=== PATIENT | male | born 2000 | race Hispanic/Latino ===

== ENCOUNTER 2023-05-15 21:52 | Inpatient (IN) | payer OTHER, SELFPAY ==
[~2023-05-15 21:52] MED LIST: Iopamidol-370 76% 500 ML MDV (1 ML CHARGE) ONE
[2023-05-15] MEDS ORDERED: CEFAZOLIN 2 GM VIAL ONE (21:59)
[2023-05-15] MEDS ORDERED: Sodium Chloride 0.9% 100 ML ONE (22:00)
[2023-05-15] MEDS ORDERED: Boostrix 0.5 ML (Tdap) VIAL (>/=7 yrs of age) ONE (22:00)
[2023-05-15 22:22] LABS: #Basophils 0.1 thou/uL (0.0-0.2); #Eosinphils 0.1 thou/uL (0.0-0.7); #Monocytes 0.7 thou/uL (0.11-0.59); #Neutrophils 9.8 thou/uL (1.40-6.50); %Basophils 0.6 % (0.0-1.0); %Eosinophils 0.9 % (0.0-10.0); %Lymphocytes 15.4 % (21.0-51.0); %Monocytes 5.1 % (0.0-10.0); %Neutrophils 77.5 % (42.0-75.0); Hematocrit 42.5 % (42.0-52.0); Hemoglobin 14.3 g/dL (14.0-18.0); Mean Corpuscular HGB CONC 33.6 g/dL (32.0-36.0); Mean Corpuscular Hemoglobin 29.9 pg (27.0-31.0); Mean Corpuscular Volume 88.7 fl (78.0-98.0); Mean Platelet Volume 10.1 fL (7.4-10.4); Platelet Count 342 10x3/uL (130-400); RBC Distribution Width 13.6 % (11.5-14.5); Red Blood Cell (RBC) Count 4.79 mill/uL (4.70-6.10); White Blood Cell (WBC) Count 12.7 10x3/uL (4.8-10.8)
[2023-05-15] MEDS ORDERED: Ketamine In 0.9 % NaCl 50 MG/5 ML SYRINGE ONE (22:24)
[2023-05-15] MEDS ORDERED: Ketorolac Tromethamine 30 MG (1 mL) VIAL ONE (22:25)
[2023-05-15] MEDS ORDERED: Morphine 4 MG/ML VIAL ONE (22:25)
[2023-05-15] MEDS ORDERED: Ipratropium/Albuterol 3 ML NEB NEB PRN (22:34)
[2023-05-15] MEDS ORDERED: Ondansetron PF 4 MG/2 ML Vial IVP PRN (22:34)
[2023-05-15] MEDS ORDERED: Morphine 2 MG/ML VIAL SLOW IVP PRN (22:34)
[2023-05-15 22:37] LABS: INR-International Normal Ratio 1.1; PTT 23.9 sec (22.9-36.1); Prothrombin Time 14.3 sec (12.0-14.7)
[2023-05-15] MEDS ORDERED: Cyclobenzaprine 10 MG TAB PO PRN (22:39)
[2023-05-15 22:43] LABS: Acetaminophen Less than 10 mcg/mL (10.0-30.0); Alcohol 160.3 mg/dL (Less than 10); Lipase 63 U/L (8-78); Salicylate Less than 8.0 mg/dL (15.0-30.0)
[2023-05-15 22:44] LABS: ALT (SGPT) 186 U/L (8-55); AST (SGOT) 262 U/L (5-34); Albumin 4.4 g/dL (3.5-5.0); Alkaline Phosphatase 67 U/L (40-110); Anion Gap 17 mmol/L (10-20); BUN (Urea Nitrogen) 13 mg/dL (8.9-20.6); Bilirubin, Total 0.2 mg/dL (0.2-1.2); Calc. Creatinine Clearance 0 mL/min (70-130); Calcium 8.3 mg/dL (7.8-10.44); Carbon Dioxide 18 mmol/L (22-29); Chloride 108 mmol/L (98-107); Estimated GFR 125; Globulin 2.3 g/dL (2.4-3.5); Glucose 115 mg/dL (70-105); Potassium 3.6 mmol/L (3.5-5.1); Protein, Total 6.7 g/dL (6.0-8.3); Sodium 139 mmol/L (136-145)
[2023-05-15] MEDS ORDERED: Sodium Chloride 0.9% 1,000 ML IV SCH (22:45)
[2023-05-15] MEDS ORDERED: Acetaminophen 500 MG TAB PO SCH (23:59)
[2023-05-16] MEDS: traMADol HCl 50 MG TAB PO SCH ×4 (00:10→18:13)
[2023-05-16] MEDS: Acetaminophen 500 MG TAB PO SCH ×4 (00:11→18:13)
[2023-05-16 01:14] VITALS: BMI 24.7
[2023-05-16 01:27] LABS: Lactic Acid 1.8 mmol/L (0.5-2.2)
[2023-05-16 05:28] LABS: #Eosinphils 0.1 thou/uL (0.0-0.7); #Neutrophils 6.9 thou/uL (1.40-6.50); %Basophils 0.4 % (0.0-1.0); %Eosinophils 0.5 % (0.0-10.0); %Lymphocytes 15.2 % (21.0-51.0); %Neutrophils 72.6 % (42.0-75.0); Hematocrit 40.5 % (42.0-52.0); Hemoglobin 13.4 g/dL (14.0-18.0); Mean Corpuscular HGB CONC 33.1 g/dL (32.0-36.0); Mean Corpuscular Hemoglobin 29.8 pg (27.0-31.0); Mean Corpuscular Volume 90.2 fl (78.0-98.0); Mean Platelet Volume 10.6 fL (7.4-10.4); Platelet Count 267 10x3/uL (130-400); RBC Distribution Width 14.2 % (11.5-14.5); Red Blood Cell (RBC) Count 4.49 mill/uL (4.70-6.10); White Blood Cell (WBC) Count 9.5 10x3/uL (4.8-10.8)
[2023-05-16 05:53] LABS: Anion Gap 12 mmol/L (10-20); BUN (Urea Nitrogen) 11 mg/dL (8.9-20.6); Calc. Creatinine Clearance 149 mL/min (70-130); Calcium 8.1 mg/dL (7.8-10.44); Carbon Dioxide 22 mmol/L (22-29); Chloride 112 mmol/L (98-107); Estimated GFR 129; Glucose 95 mg/dL (70-105); Sodium 142 mmol/L (136-145)
[2023-05-16] MEDS ORDERED: Gabapentin 100 MG CAP PO SCH (09:00)
[2023-05-16] MEDS: Senokot S 8.6-50 MG TAB PO SCH ×2 (09:05→20:35)
[2023-05-16] MEDS: Famotidine/PF 20 mg/2ml Vial SLOW IVP SCH ×2 (09:07→20:29)
[2023-05-16 13:12] LABS: Amphetamine Not Detected (NotDetected); Barbiturates Screen Not Detected (NotDetected); Benzodiazepine Screen Not Detected (NotDetected); Cocaine Metabolite Screen Detected (NotDetected); Methadone Not Detected (NotDetected); Methamphetamine Not Detected (NotDetected); Opiate Screen Detected (NotDetected); Oxycodone Screen Not Detected (NotDetected); Phencyclidine (PCP) Not Detected (NotDetected); THC/Cannabinoid Screen Not Detected (NotDetected); Tricyclic Screen Not Detected (NotDetected)
[2023-05-16] MEDS ORDERED: Magnesium Citrate 300 ML BOT PO SCH (15:00)
[2023-05-16] MEDS: Gabapentin 300 MG CAP PO SCH ×2 (15:31→20:31)
[2023-05-16] MEDS: Enoxaparin 40 MG (0.4 mL) SYRINGE SC SCH (20:30)
[2023-05-16] MEDS: Cyclobenzaprine 10 MG TAB PO PRN (20:31)
[2023-05-16] MEDS: traMADol HCl 50 MG TAB PO PRN (20:33)
[2023-05-17] MEDS: traMADol HCl 50 MG TAB PO SCH ×5 (00:42→23:44)
[2023-05-17] MEDS: Acetaminophen 500 MG TAB PO SCH ×5 (00:43→23:45)
[2023-05-17 05:18] LABS: #Basophils 0.1 thou/uL (0.0-0.2); #Eosinphils 0.2 thou/uL (0.0-0.7); #Monocytes 0.8 thou/uL (0.11-0.59); %Basophils 0.7 % (0.0-1.0); %Eosinophils 2.8 % (0.0-10.0); %Lymphocytes 15.5 % (21.0-51.0); %Monocytes 9.9 % (0.0-10.0); %Neutrophils 70.9 % (42.0-75.0); Hematocrit 42.7 % (42.0-52.0); Hemoglobin 13.9 g/dL (14.0-18.0); Mean Corpuscular HGB CONC 32.6 g/dL (32.0-36.0); Mean Corpuscular Hemoglobin 29.8 pg (27.0-31.0); Mean Corpuscular Volume 91.4 fl (78.0-98.0); Mean Platelet Volume 10.5 fL (7.4-10.4); Platelet Count 256 10x3/uL (130-400); RBC Distribution Width 14.3 % (11.5-14.5); Red Blood Cell (RBC) Count 4.67 mill/uL (4.70-6.10); White Blood Cell (WBC) Count 8.5 10x3/uL (4.8-10.8)
[2023-05-17] MEDS: Senokot S 8.6-50 MG TAB PO SCH ×2 (10:02→20:57)
[2023-05-17] MEDS: Gabapentin 300 MG CAP PO SCH ×3 (10:03→20:57)
[2023-05-17] MEDS: Cyclobenzaprine 10 MG TAB PO PRN (18:14)
[2023-05-17] MEDS: Enoxaparin 40 MG (0.4 mL) SYRINGE SC SCH (20:56)
[2023-05-17] MEDS: traMADol HCl 50 MG TAB PO PRN (21:04)
[2023-05-18] MEDS: traMADol HCl 50 MG TAB PO SCH ×4 (05:27→23:33)
[2023-05-18] MEDS: Acetaminophen 500 MG TAB PO SCH ×4 (05:27→23:33)
[2023-05-18] MEDS: Gabapentin 300 MG CAP PO SCH ×3 (09:09→20:11)
[2023-05-18] MEDS: Senokot S 8.6-50 MG TAB PO SCH ×2 (09:10→20:19)
[2023-05-18] MEDS: CeleCOXIB 100 MG CAP PO SCH (20:11)
[2023-05-18] MEDS: Enoxaparin 40 MG (0.4 mL) SYRINGE SC SCH (20:12)
[2023-05-19] MEDS: traMADol HCl 50 MG TAB PO SCH ×2 (05:21→12:31)
[2023-05-19] MEDS: Acetaminophen 500 MG TAB PO SCH ×2 (05:21→12:30)
[2023-05-19] MEDS: Gabapentin 300 MG CAP PO SCH (09:58)
[2023-05-19] MEDS: Senokot S 8.6-50 MG TAB PO SCH (09:58)
[2023-05-19] MEDS: CeleCOXIB 100 MG CAP PO SCH (09:59)
[2023-05-19 11:54] VITALS: BP 120/72; TEMP 98.1
== END 2023-05-19 15:56 | disposition home or self-care (01) | DRG 200 ==
LOC: EDBD 21:52 → ERS 21:52 → OBSVTOIN 23:59 → SURG A 23:59
PROVIDERS: ADMIT Student in an Organized Health Care Education/Training Program; ATTEND Student in an Organized Health Care Education/Training Program
PROC: 0W9930Z Drainage of Right Pleural Cavity with Drainage Device, Percutaneous Approach (ICD-10-PCS; principal; 2023-05-15)
PROC: 0WP930Z Removal of Drainage Device from Right Pleural Cavity, Percutaneous Approach (ICD-10-PCS; 2023-05-15)
DX: S27.0XXA Traumatic pneumothorax, initial encounter (principal); S22.32XA Fracture of one rib, left side, initial encounter for closed fracture; V59.9XXA Occupant (driver) (passenger) of pick-up truck or van injured in unspecified traffic accident, initial encounter; Y92.411 Interstate highway as the place of occurrence of the external cause; G89.11 Acute pain due to trauma
CPT/HCPCS: 32551; 36415; 70450; 71045; 71260; 72125; 74177; 80048; 80053; 80306; 80307; 83605; 83690; 85025; 85610; 85730; 90471; 90715; 94760; 96365; 96375; 99152; G0390; J1650; J1885; J2270; J2272; J3490; J7050; Q9967; S0028

== ENCOUNTER 2023-06-15 14:39 | Outpatient (CLI) | payer OTHER | END 2023-06-15 14:40 | disposition home or self-care (01) | LOC: BICRAD 14:39 | PROVIDERS: ATTEND Surgery | DX: S27.0XXA Traumatic pneumothorax, initial encounter (principal) | CPT/HCPCS: 71046 ==